=== PATIENT | male | born 1985 | race Hispanic/Latino ===

== ENCOUNTER 2017-06-27 03:27 | Inpatient (IN) | payer OTHER ==
[~2017-06-27] VITALS: Ht 170.2 cm; Wt 97.3 kg
[2017-06-27] MEDS ORDERED: ONDANSETRON HCL MDV 20ML 2 MG/ML VIAL ONE ×2 (03:57→09:18)
[2017-06-27] MEDS ORDERED: HYOSCYAMINE SULFATE 0.125 MG TAB.SUBL SL ONE (04:00)
[2017-06-27 04:01] LABS: APPEARANCE,URINE Clear (CLEAR); BILIRUBIN,URINE Negative (NEGATIVE); COLOR,URINE Dark Yellow (YELLOW); GLUCOSE, URINE (UA) Negative (NEGATIVE); KETONES,URINE Negative (NEGATIVE); LEUKOCYTE ESTERASE ,URINE Negative (NEGATIVE); NITRATE,URINE Negative (NEGATIVE); OCCULT BLOOD,URINE Negative (NEGATIVE); PROTEIN,URINE Negative (NEGATIVE)
[2017-06-27 04:02] LABS: BASOPHILS % (AUTO) 0.7 % (0.0-5.0); EOSINOPHILS % (AUTO) 0.8 % (0.0-8.0); HEMATOCRIT 43.5 % (42-54); LYMPHOCYTES % (AUTO) 15.4 % (21.0-51.0); MEAN CORPUSCULAR VOLUME 81.8 fL (79-99); MONOCYTES % (AUTO) 6.4 % (3.0-13.0); NEUTROPHILS % (AUTO) 76.7 % (40.0-77.0); NUCLEATED RED BLOOD CELLS 0.1 % (0.0-0.19); PLATELET COUNT (AUTO) 243 K/uL (130-400); RED BLOOD CELL COUNT(AUTO) 5.32 MIL/uL (4.50-6.20); RED CELL DISTRIBUTION WIDTH 14.2 % (11.0-15.5); WHITE BLOOD COUNT (AUTO) 9.5 K/uL (4.8-10.8)
[2017-06-27 04:10] LABS: POTASSIUM 4.9 mmol/L (3.5-5.1)
[2017-06-27 04:16] LABS: ALBUMIN 3.9 g/dL (3.5-5.0); BILIRUBIN,TOTAL 1.2 mg/dL (0.2-1.0)
[2017-06-27] MEDS ORDERED: FENTANYL CITRATE PF 50 MCG/1 ML 2ML VIAL ONE ×2 (05:17→05:49)
[2017-06-27 05:18] LABS: CREATININE 0.7 mg/dL (0.5-1.5)
[2017-06-27 05:20] LABS: TOTAL PROTEIN, SERUM 7.9 g/dL (6.0-8.3)
[2017-06-27] MEDS ORDERED: LACTATED RINGERS 1000ML 2,000 ML IV ONE (05:30)
[2017-06-27 05:49] LABS: BASE EXCESS,VENOUS BLOOD GAS -0.1 (-2.0-3.0); HCO3,VENOUS BLOOD GAS 24.4 (21.0-28.0); PCO2,VENOUS BLOOD GAS 39 (35-48)
[2017-06-27 06:12] LABS: CREATININE 0.7 mg/dL (0.5-1.5); POTASSIUM 4.5 mmol/L (3.5-5.1)
[2017-06-27 06:18] LABS: ALBUMIN 3.6 g/dL (3.5-5.0); BILIRUBIN,TOTAL 1.4 mg/dL (0.2-1.0)
[2017-06-27 06:18] LABS: MEAN CORPUSCULAR HEMOGLOBIN 28.7 pg (27.0-33.0); MEAN CORPUSCULAR HGB CONC 34.2 g/dL (32.0-36.0)
[2017-06-27] MEDS ORDERED: POTASSIUM CHLORIDE 20MEQ/100ML 100 ML IV PRN (07:15)
[2017-06-27] MEDS ORDERED: LIDOCAINE HCL-MPF 1% 2ML VIAL IVP PRN (07:15)
[2017-06-27] MEDS ORDERED: ONDANSETRON HCL 4 MG/2 ML VIAL IVP PRN (07:15)
[2017-06-27] MEDS ORDERED: POTASSIUM CHLORIDE 10% ELIXIR 20 MEQ/15 ML UDCUP PO PRN (07:15)
[2017-06-27] MEDS ORDERED: MEROPENEM 500 MG VIAL ONE (07:53)
[2017-06-27] MEDS ORDERED: DIATR MEGLU/DIATRIZOATE SODIUM 30 ML BOTTLE ONE (08:10)
[2017-06-27 08:16] LABS: TOTAL PROTEIN, SERUM 5.6 g/dL (6.0-8.3)
[2017-06-27] MEDS ORDERED: MORPHINE SULFATE 4 MG/1ML SYG ONE ×3 (08:23→22:58)
[2017-06-27] MEDS: PANTOPRAZOLE SODIUM 40 MG TABLET.DR PO SCH (09:00)
[2017-06-27] MEDS ORDERED: MAG HYDROX/AL HYDROX/SIMETH ES 30 ML SUSP UDCUP PO PRN (11:45)
[2017-06-27] MEDS ORDERED: LACTULOSE 20 GM/30 ML UDCUP PO PRN (11:45)
[2017-06-27] MEDS ORDERED: ACETAMINOPHEN 325 MG TAB PO PRN (11:45)
[2017-06-27] MEDS ORDERED: GUAIFENESIN-DM 200/20 MG 10 ML PO PRN (11:45)
[2017-06-27] MEDS ORDERED: ONDANSETRON HCL 4 MG/2 ML VIAL IV PRN (11:45)
[2017-06-27] MEDS ORDERED: NITROGLYCERIN 0.4 MG SL TAB SL PRN (11:45)
[2017-06-27] MEDS ORDERED: HYDRALAZINE HCL 20 MG/ML VIAL IV PRN (11:45)
[2017-06-27] MEDS: SIMETHICONE 80 MG TAB.CHEW PO SCH ×3 (13:00→23:59)
[2017-06-27] MEDS ORDERED: MEROPENEM 500MG+NS 50ML 50 ML IV SCH (14:00)
[2017-06-27] MEDS ORDERED: MEROPENEM 500 MG VIAL IVP SCH (14:00)
[2017-06-27] MEDS ORDERED: ACETAMINOPHEN 325 MG TAB ONE (17:25)
[2017-06-27] MEDS: SODIUM CHLORIDE 0.9% 1000ML 1,000 ML IV SCH ×3 (18:39→23:59)
[2017-06-27] MEDS ORDERED: SIMETHICONE 80 MG TAB.CHEW ONE (20:29)
[2017-06-28 00:15] VITALS: BP 121/62
[2017-06-28] MEDS: SODIUM CHLORIDE 0.9% 1000ML 1,000 ML IV SCH ×6 (00:22→20:35)
[2017-06-28 04:00] VITALS: BP 115/62
[2017-06-28] MEDS: ACETAMINOPHEN 325 MG TAB PO PRN ×4 (05:16→23:35)
[2017-06-28 06:07] LABS: HEMATOCRIT 40.7 % (42-54); MEAN CORPUSCULAR HEMOGLOBIN 28.8 pg (27.0-33.0); MEAN CORPUSCULAR HGB CONC 35.9 g/dL (32.0-36.0); MEAN CORPUSCULAR VOLUME 80.3 fL (79-99); PLATELET COUNT (AUTO) 181 K/uL (130-400); RED BLOOD CELL COUNT(AUTO) 5.07 MIL/uL (4.50-6.20); RED CELL DISTRIBUTION WIDTH 14.3 % (11.0-15.5); WHITE BLOOD COUNT (AUTO) 9.6 K/uL (4.8-10.8)
[2017-06-28 06:21] LABS: BAND NEUTROPHILS % (MANUAL) 17 % (0-2); LYMPHOCYTES % (MANUAL) 17 % (22-44); MAN.DIFF COMMENT-IMPRESSION MANUAL DIFFERENTIAL; MONOCYTES % (MANUAL) 3 % (2-9); PLATELET MORPHOLOGY COMMENT ADEQUATE; REACTIVE LYMPHOCYTES 1 % (0-0); SEGMENTED NEUTROPHILS % 62 % (40-70)
[2017-06-28 06:35] LABS: ALBUMIN 3.5 g/dL (3.5-5.0); BILIRUBIN,TOTAL 1.9 mg/dL (0.2-1.0); CREATININE 0.9 mg/dL (0.5-1.5); POTASSIUM 3.5 mmol/L (3.5-5.1); TOTAL PROTEIN, SERUM 7.4 g/dL (6.0-8.3)
[2017-06-28] MEDS: MORPHINE SULFATE 4 MG/1ML SYG IVP PRN ×3 (06:40→23:34)
[2017-06-28] MEDS: POTASSIUM CHLORIDE 20 MEQ ERTAB PO PRN ×2 (06:45→20:35)
[2017-06-28 08:00] VITALS: BP 126/63
[2017-06-28] MEDS: PANTOPRAZOLE SODIUM 40 MG TABLET.DR PO SCH (09:25)
[2017-06-28] MEDS: SIMETHICONE 80 MG TAB.CHEW PO SCH ×4 (09:25→20:35)
[2017-06-28 11:00] VITALS: BP 138/73
[2017-06-28] MEDS ORDERED: COMPOUND IV REFRIGERATED 1 EACH IVSOLN MISC PRN (11:30)
[2017-06-28] MEDS ORDERED: CEFTRIAXONE 1GM/D5W 50ML 50 ML IV SCH (11:30)
[2017-06-28] MEDS: CEFTRIAXONE SODIUM 1 GM IVP SCH (12:02)
[2017-06-28 16:00] VITALS: BP 115/70
[2017-06-28 18:08] LABS: APPEARANCE,URINE Clear (CLEAR); BILIRUBIN,URINE Small (NEGATIVE); GLUCOSE, URINE (UA) Negative (NEGATIVE); KETONES,URINE 15 mg/dL (NEGATIVE); LEUKOCYTE ESTERASE ,URINE Trace (NEGATIVE); NITRATE,URINE Positive (NEGATIVE); OCCULT BLOOD,URINE Negative (NEGATIVE); PH,URINE 6.5 (5.0-8.0); PROTEIN,URINE POS 1+ (NEGATIVE)
[2017-06-28 18:21] LABS: MUCUS,URINE Many LPF (None Seen); RBC,URINE None Seen /HPF (0-1)
[2017-06-28 18:22] LABS: BACTERIA,URINE Few /HPF (None Seen); FINE GRANULAR CASTS,URINE 0-2 /LPF (None Seen)
[2017-06-28 18:23] LABS: COLOR,URINE AMBER (YELLOW)
[2017-06-28 20:00] VITALS: BP 122/68
[2017-06-29] VITALS (7 sets, daily range): BP systolic 112–133; BP diastolic 63–76
[2017-06-29] MEDS: SODIUM CHLORIDE 0.9% 1000ML 1,000 ML IV SCH ×5 (01:05→22:15)
[2017-06-29 04:59] LABS: HEMATOCRIT 34.8 % (42-54); MEAN CORPUSCULAR HEMOGLOBIN 29.5 pg (27.0-33.0); MEAN CORPUSCULAR VOLUME 81.8 fL (79-99); PLATELET COUNT (AUTO) 158 K/uL (130-400); RED BLOOD CELL COUNT(AUTO) 4.25 MIL/uL (4.50-6.20); RED CELL DISTRIBUTION WIDTH 14.2 % (11.0-15.5); WHITE BLOOD COUNT (AUTO) 9.2 K/uL (4.8-10.8)
[2017-06-29 05:17] LABS: ALBUMIN 2.9 g/dL (3.5-5.0); BILIRUBIN,TOTAL 1.8 mg/dL (0.2-1.0); CREATININE 0.9 mg/dL (0.5-1.5); POTASSIUM 3.9 mmol/L (3.5-5.1); TOTAL PROTEIN, SERUM 6.9 g/dL (6.0-8.3)
[2017-06-29 06:12] LABS: BAND NEUTROPHILS % (MANUAL) 7 % (0-2); BASOPHILS % (MANUAL) 3 % (0-2); EOSINOPHILS % (MANUAL) 2 % (1-6); LYMPHOCYTES % (MANUAL) 15 % (22-44); MAN.DIFF COMMENT-IMPRESSION MANUAL DIFFERENTIAL; MONOCYTES % (MANUAL) 6 % (2-9); SEGMENTED NEUTROPHILS % 67 % (40-70)
[2017-06-29] MEDS ORDERED: FOLIC ACID 5 MG/ML 10 ML VIAL IV SCH (09:00)
[2017-06-29] MEDS: PANTOPRAZOLE SODIUM 40 MG TABLET.DR PO SCH ×2 (09:00→12:29)
[2017-06-29] MEDS ORDERED: THIAMINE HCL 100 MG/ML 2ML VIAL IVP SCH (09:00)
[2017-06-29] MEDS: SIMETHICONE 80 MG TAB.CHEW PO SCH ×4 (09:37→20:18)
[2017-06-29] MEDS: ENOXAPARIN SODIUM 30 MG/0.3 ML SQ SCH (09:37)
[2017-06-29] MEDS ORDERED: KETOROLAC TROMETHAMINE 15MG/ML IV PRN (11:00)
[2017-06-29] MEDS ORDERED: ACETAMINOPHEN-CODEINE 300/30MG TAB PO PRN ×2 (11:00)
[2017-06-29] MEDS ORDERED: MORPHINE SULFATE 2 MG/ML 1ML SYG IVP PRN (11:00)
[2017-06-29] MEDS: CEFTRIAXONE SODIUM 1 GM IVP SCH (12:30)
[2017-06-29] MEDS: METOCLOPRAMIDE 10 MG TABLET PO SCH ×2 (12:30→17:43)
[2017-06-29] MEDS: ACETAMINOPHEN 325 MG TAB PO PRN (20:19)
[2017-06-30 03:24] VITALS: BP 123/91
[2017-06-30 04:41] LABS: HEMATOCRIT 31.6 % (42-54); MEAN CORPUSCULAR HEMOGLOBIN 29.5 pg (27.0-33.0); MEAN CORPUSCULAR HGB CONC 36.1 g/dL (32.0-36.0); MEAN CORPUSCULAR VOLUME 81.7 fL (79-99); PLATELET COUNT (AUTO) 154 K/uL (130-400); RED BLOOD CELL COUNT(AUTO) 3.87 MIL/uL (4.50-6.20); RED CELL DISTRIBUTION WIDTH 13.8 % (11.0-15.5); WHITE BLOOD COUNT (AUTO) 6.6 K/uL (4.8-10.8)
[2017-06-30 05:01] LABS: CREATININE 0.7 mg/dL (0.5-1.5); POTASSIUM 3.6 mmol/L (3.5-5.1)
[2017-06-30] MEDS: POTASSIUM CHLORIDE 20 MEQ ERTAB PO PRN (06:39)
[2017-06-30] MEDS: SODIUM CHLORIDE 0.9% 1000ML 1,000 ML IV SCH (06:50)
[2017-06-30 08:00] VITALS: BP 126/70
[2017-06-30] MEDS ORDERED: THIAMINE HCL 100 MG TABLET PO SCH (09:00)
[2017-06-30] MEDS ORDERED: SODIUM CHLORIDE 0.9% 1000ML 1,000 ML IV SCH (09:00)
[2017-06-30] MEDS ORDERED: FOLIC ACID 1 MG TABLET PO SCH (09:00)
[2017-06-30] MEDS: METOCLOPRAMIDE 10 MG TABLET PO SCH ×2 (11:29→19:19)
[2017-06-30] MEDS: SIMETHICONE 80 MG TAB.CHEW PO SCH ×3 (11:30→20:21)
[2017-06-30] MEDS: CEFTRIAXONE SODIUM 1 GM IVP SCH (11:31)
[2017-06-30] MEDS: ENOXAPARIN SODIUM 30 MG/0.3 ML SQ SCH (11:31)
[2017-06-30 11:47] VITALS: BP 125/76
[2017-06-30 16:00] VITALS: BP 129/71
[2017-06-30 19:10] VITALS: BP 122/69
[2017-06-30 23:18] VITALS: BP 135/71
[2017-07-01 03:32] VITALS: BP 128/54
[2017-07-01 05:02] LABS: CREATININE 0.8 mg/dL (0.5-1.5); POTASSIUM 3.3 mmol/L (3.5-5.1)
[2017-07-01 05:07] LABS: HEMATOCRIT 33.8 % (42-54); MEAN CORPUSCULAR HEMOGLOBIN 28.3 pg (27.0-33.0); MEAN CORPUSCULAR VOLUME 80.9 fL (79-99); PLATELET COUNT (AUTO) 214 K/uL (130-400); RED BLOOD CELL COUNT(AUTO) 4.18 MIL/uL (4.50-6.20); RED CELL DISTRIBUTION WIDTH 13.8 % (11.0-15.5); WHITE BLOOD COUNT (AUTO) 6.6 K/uL (4.8-10.8)
[2017-07-01] MEDS: POTASSIUM CHLORIDE 20 MEQ ERTAB PO PRN (05:54)
[2017-07-01 08:23] VITALS: BP 128/76
[2017-07-01] MEDS ORDERED: CEPH500B PO (09:25)
== END 2017-07-01 10:55 | disposition home or self-care (01) | DRG 439 ==
LOC: EDH 03:27 → EDHIP 06:20 → 3CH 22:18
PROVIDERS: ADMIT Family Medicine; ATTEND Family Medicine
DX: K85.20 Alcohol induced acute pancreatitis without necrosis or infection (principal); E87.1 Hypo-osmolality and hyponatremia; N39.0 Urinary tract infection, site not specified
CPT/HCPCS: 36415; 36600; 74176; 76705; 80048; 80053; 81001; 81003; 82150; 82803; 83690; 83735; 84478; 85025; 85027; 87040; A4218; J0696; J1650; J1885; J2185; J2270; J3010; J3411; J3490; J7030; J7120; Q9963